=== PATIENT | female | born 1995 | race Caucasian/White ===

== ENCOUNTER 2018-03-28 13:28 | Emergency (ER) | payer OTHER ==
[2018-03-28 14:40] LABS: ABS Basophils 0 10^3/ul (0-0.2); ABS Eosinophils 0.1 10^3/ul (0-0.6); ABS Lymphocytes 1.8 10^3/ul (1.0-4.8); ABS Monocytes 0.4 10^3/ul (0-0.8); ABS Neutrophils 5.6 10^3/ul (1.5-7.7); ABS Nucleated RBC 0 10^3/ul; Eosinophil % 0.7 %; Hematocrit 40 % (35-47); Hemoglobin 13.1 g/dl (12.0-16.0); Lymphocyte % 22.6 %; Mean Corpuscular HGB Conc 33 g/dl (31-36); Mean Corpuscular Hemoglobin 30 pg (27-31); Mean Corpuscular Volume 92 fL (80-97); Mean Platelet Volume 7.4 fL (7.4-10.4); Nucleated Red Blood Cells % 0; Platelet Count 269 10^3/ul (150-450); Red Blood Count 4.32 10^6/ul (4.00-5.40); Red Cell Distribution Width 14 % (10.5-15); White Blood Count 7.8 10^3/ul (3.5-10.8)
[2018-03-28 14:56] LABS: EGFR Non-African American 94.9 (>60)
--- NOTE | 2018-03-28 16:05 | ED ---
HPI Chest Pain - HPI Summary HPI Summary: 22-year-old female presents with chest pain today. She states it started at 11. She states it was sharp in nature and lasted like an hour. She states that this pain. States it does radiate little bit to shoulder. She admits occasional shortness breath. States now she only has the pain she breath in. States it is in the same location. She has not tried anything for her symptoms. States movement makes it worse. She denies any pain or swelling in muscles. She denies any recent travel. No family history of cardiac disease or blood clots. She is not on control. No palpitations. She is on medication for ADHD but she has recently stopped. She denies any recent illness. No cough. No bowel pain. No nausea and no vomiting. - History of Current Complaint Chief Complaint: EDChestWallPain Time Seen by Provider: 03/28/18 15:41 Pain Intensity: 3 - Allergy/Home Medications Allergies/Adverse Reactions: Allergies Allergy/AdvReac Type Severity Reaction Status Date / Time No Known Allergies Allergy Verified 03/28/18 13:39 PMH/Surg Hx/FS Hx/Imm Hx Endocrine/Hematology History: Denies: Hx Anticoagulant Therapy Respiratory History: Denies: Hx Asthma Infectious Disease History: No Infectious Disease History: Denies: Traveled Outside the [place] in Last 30 Days - Family History Known Family History: Negative: Cardiac Disease, Blood Disorder - Social History Alcohol Use: Occasionally Substance Use Type: Reports: None Smoking Status (MU): Never Smoked Tobacco Review of Systems Negative: Fever Positive: Chest Pain Positive: Shortness Of Breath. Negative: Cough Negative: Abdominal Pain All Other Systems Reviewed And Are Negative: Yes Physical Exam Triage Information Reviewed: Yes Vital Signs On Initial Exam: Initial Vitals Temp Pulse Resp BP Pulse Ox 99.7 F 81 18 125/79 99 03/28/18 13:35 03/28/18 13:35 03/28/18 13:35 03/28/18 13:35 03/28/18 13:35 Vital Signs Reviewed: Yes Appearance: Positive: Well-Appearing Skin: Positive: Warm, Dry Head/Face: Positive: Normal Head/Face Inspection Eyes: Positive: Normal, EOMI, KEYONNA, Conjunctiva Clear ENT: Positive: Normal ENT inspection, Pharynx normal, TMs normal Neck: Positive: Supple, Nontender, No Lymphadenopathy Respiratory/Lung Sounds: Positive: Clear to Auscultation, Breath Sounds Present , Other - reproducible sternal chest pain Cardiovascular: Positive: Normal, RRR Abdomen Description: Positive: Nontender, Soft Bowel Sounds: Positive: Present Musculoskeletal: Positive: Normal Neurological: Positive: Normal Psychiatric: Positive: Normal Diagnostics - Vital Signs Vital Signs Temp Pulse Resp BP Pulse Ox 03/28/18 13:35 99.7 F 81 18 125/79 99 - Laboratory Lab Results: Lab Results 03/28/18 03/28/18 03/28/18 Range/Units 14:21 14:21 14:21 WBC 7.8 (3.5-10.8) 10^3/ul RBC 4.32 (4.00-5.40) 10^6/ul Hgb 13.1 (12.0-16.0) g/dl Hct 40 (35-47) % MCV 92 (80-97) fL MCH 30 (27-31) pg MCHC 33 (31-36) g/dl RDW 14 (10.5-15) % Plt Count 269 (150-450) 10^3/ul MPV 7.4 (7.4-10.4) fL Neut % (Auto) 71.5 % Lymph % (Auto) 22.6 % [place] % (Auto) 4.7 % Eos % (Auto) 0.7 % Baso % (Auto) 0.5 % Absolute Neuts (auto) 5.6 (1.5-7.7) 10^3/ul Absolute Lymphs (auto) 1.8 (1.0-4.8) 10^3/ul Absolute Monos (auto) 0.4 (0-0.8) 10^3/ul Absolute Eos (auto) 0.1 (0-0.6) 10^3/ul Absolute Basos (auto) 0 (0-0.2) 10^3/ul Absolute Nucleated RBC 0 10^3/ul Nucleated RBC % 0 D-Dimer, Quantitative < 200 (Less Than 230) ng/mL Sodium 138 (135-145) mmol/L Potassium 3.6 (3.5-5.0) mmol/L Chloride 106 (101-111) mmol/L Carbon Dioxide 27 (22-32) mmol/L Anion Gap 5 (2-11) mmol/L BUN 9 (6-24) mg/dL Creatinine 0.75 (0.51-0.95) mg/dL Est GFR ( Amer) 114.9 (>60) Est GFR (Non-Af Amer) 94.9 (>60) BUN/Creatinine Ratio 12.0 (8-20) Glucose 109 H (70-100) mg/dL Lactic Acid (0.5-2.0) mmol/L Calcium 9.8 (8.6-10.3) mg/dL Total Bilirubin 0.50 (0.2-1.0) mg/dL AST 15 (13-39) U/L ALT 22 (7-52) U/L Alkaline Phosphatase 50 (34-104) U/L Troponin I 0.00 (<0.04) ng/mL C-Reactive Protein (<8.01) mg/L Total Protein 7.2 (6.4-8.9) g/dL Albumin 4.4 (3.2-5.2) g/dL Globulin 2.8 (2-4) g/dL Albumin/Globulin Ratio 1.6 (1-3) Beta HCG, Quant 03/28/18 03/28/18 Range/Units 14:21 14:29 WBC (3.5-10.8) 10^3/ul RBC (4.00-5.40) 10^6/ul Hgb (12.0-16.0) g/dl Hct (35-47) % MCV (80-97) fL MCH (27-31) pg MCHC (31-36) g/dl RDW (10.5-15) % Plt Count (150-450) 10^3/ul MPV (7.4-10.4) fL Neut % (Auto) % Lymph % (Auto) % [place] % (Auto) % Eos % (Auto) % Baso % (Auto) % Absolute Neuts (auto) (1.5-7.7) 10^3/ul Absolute Lymphs (auto) (1.0-4.8) 10^3/ul Absolute Monos (auto) (0-0.8) 10^3/ul Absolute Eos (auto) (0-0.6) 10^3/ul Absolute Basos (auto) (0-0.2) 10^3/ul Absolute Nucleated RBC 10^3/ul Nucleated RBC % D-Dimer, Quantitative (Less Than 230) ng/mL Sodium (135-145) mmol/L Potassium (3.5-5.0) mmol/L Chloride (101-111) mmol/L Carbon Dioxide (22-32) mmol/L Anion Gap (2-11) mmol/L BUN (6-24) mg/dL Creatinine (0.51-0.95) mg/dL Est GFR ( Amer) (>60) Est GFR (Non-Af Amer) (>60) BUN/Creatinine Ratio (8-20) Glucose (70-100) mg/dL Lactic Acid 1.0 (0.5-2.0) mmol/L Calcium (8.6-10.3) mg/dL Total Bilirubin (0.2-1.0) mg/dL AST (13-39) U/L ALT (7-52) U/L Alkaline Phosphatase (34-104) U/L Troponin I (<0.04) ng/mL C-Reactive Protein 1.20 (<8.01) mg/L Total Protein (6.4-8.9) g/dL Albumin (3.2-5.2) g/dL Globulin (2-4) g/dL Albumin/Globulin Ratio (1-3) Beta HCG, Quant Pending Result Diagrams: 03/28/18 14:21 03/28/18 14:21 Lab Statement: Any lab studies that have been ordered have been reviewed, and results considered in the medical decision making process. - Radiology chest Radiology Interpretation Completed By: ED Physician Summary of Radiographic Findings: nad - EKG No standard instances Cardiac Rate: NL EKG Rhythm: Sinus Rhythm Summary of EKG Findings: sinus rhythm Chest Pain Course/Dx - Course Course Of Treatment: 22-year-old female presents with chest pain today. She states it started at 11. She states it was sharp in nature and lasted like an hour. She states that this pain. States it does radiate little bit to shoulder. She admits occasional shortness breath. States now she only has the pain she breath in. States it is in the same location. She has not tried anything for her symptoms. States movement makes it worse. She denies any pain or swelling in muscles. She denies any recent travel. No family history of cardiac disease or blood clots. She is not on control. No palpitations. She is on medication for ADHD but she has recently stopped. She denies any recent illness. No cough. No bowel pain. No nausea and no vomiting. On exam has reproducible chest pain. EKG sinus rhythm. d-dimer and troponin negative. Has no risk factors for cardiac disease. Likely costochondritis. told take ibuprofen. told to follow up with primary. Patient understands agrees plan. - Chest Pain Differential Diagnosis/HQI/PQRI: Angina, Chest Wall, Lower Respiratory Infection - Diagnoses Provider Diagnoses: Chest pain Discharge - Sign-Out/Discharge Documenting (check all that apply): Patient Departure - Discharge Plan Condition: Good Disposition: HOME Patient Education Materials: Noncardiac Chest Pain (ED) Referrals: No Primary Care Phys,NOPCP [Primary Care Provider] - Additional Instructions: take ibuprofen every 6 hours for pain Follow up with primary within 5 days Return to ED if develop any new or worsening symptoms - Billing Disposition and Condition Condition: GOOD Disposition: Home
[2018-03-28 16:36] VITALS: BP 119/77
== END 2018-03-28 16:35 | disposition home or self-care (01) ==
LOC: ED 13:28
DX: R07.9 Chest pain, unspecified (principal); F90.9 Attention-deficit hyperactivity disorder, unspecified type
CPT/HCPCS: 36415; 71046; 80053; 83605; 84484; 84702; 85025; 85379; 86140; 93005; 99282

== ENCOUNTER 2018-08-02 14:51 | Emergency (ER) | payer OTHER ==
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
[2018-08-02] MEDS ORDERED: Ketorolac INJ* 30 MG/ML 1 ML VIAL IM ONE (18:12)
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
[2018-08-02 18:31] VITALS: BP 114/69
== END 2018-08-02 18:30 | disposition home or self-care (01) ==
LOC: ED 14:51
DX: M54.2 Cervicalgia (principal); M54.9 Dorsalgia, unspecified; M25.562 Pain in left knee; V43.52XA Car driver injured in collision with other type car in traffic accident, initial encounter; Y92.410 Unspecified street and highway as the place of occurrence of the external cause
CPT/HCPCS: 72020; 72040; 72110; 96374; 99282; J1885

== ENCOUNTER 2019-07-17 01:07 | Emergency (ER) | payer OTHER ==
--- NOTE | 2019-07-17 01:51 | ED ---
Shortness of Breath - HPI Summary HPI Summary: Patient is a 24 year-old female presenting to [facility] with a chief complaint of shortness of breath worsening over the last week. She reports that she had began feeling unwell three weeks ago with mild and intermittent symptoms for the first two weeks. At the beginning of the third week, her symptoms worsened as she developed more shortness of breath. She went to [facility] where she was diagnosed with asthma and prescribed prescribed an Albuterol Sulfate HFA inhaler, although she has never had asthma before. She was also tested for COVID -19 at this time but is still awaiting results. She has been using the inhaler without any relief of her symptoms. She endorses chest wall pain secondary to cough. She denies any fevers, which she has been checking everyday since being placed in quarantine a week ago. She is concerned for possible allergic reaction to the inhaler. Symptoms rated 7/10 in severity now. No recent travel. Past medical history includes schizo-affective disorder. Nonsmoker, occasional EtOH, no substance use. Medications reviewed. Allergies noted. - History of Current Complaint Chief Complaint: EDShortnessOfBreath Time Seen by Provider: 07/17/19 01:16 Hx Obtained From: Patient Onset/Duration: Gradual Onset, Lasting Days, Still Present Current Severity: Moderate Dyspnea At: Rest Aggravating Factors: Nothing Alleviating Factors: Nothing Associated Signs & Symptoms: Chest Pain w/Cough - Allergy/Home Medications Allergies/Adverse Reactions: Allergies Allergy/AdvReac Type Severity Reaction Status Date / Time No Known Allergies Allergy Verified 07/17/19 01:13 Home Medications: Home Medications [place] Carbonate ER TAB* 1 tab PO BID 08/02/18 [History Confirmed 07/17/19] Albuterol Sulfate Hfa 2 puff INH DAILY 07/17/19 [History Confirmed 07/17/19] PMH/Surg Hx/FS Hx/Imm Hx Endocrine/Hematology History: Denies: Hx Anticoagulant Therapy Cardiovascular History: Denies: Hx Hypercholesterolemia, Hx Hypertension Respiratory History: Reports: Hx Asthma Psychiatric History: Reports: Hx Schizophrenia - Surgical History Surgical History: None Surgery Procedure, Year, and Place: none Infectious Disease History: No Infectious Disease History: Denies: Traveled Outside the [place] in Last 30 Days - Family History Known Family History: Negative: Cardiac Disease, Blood Disorder - Social History Alcohol Use: Occasionally Alcohol Amount: 4-5 drinks Hx Substance Use: No Substance Use Type: Reports: None Hx Tobacco Use: No Smoking Status (MU): Never Smoked Tobacco - Additional Comments History Additional Comments: recently diagnosed asthma, schizo-affective disorder Review of Systems - ROS Summary Review of Systems Summary: Home Medications Medication Instructions Recorded Confirmed Type [place] Carbonate ER TAB* 1 tab PO BID 08/02/18 07/17/19 History Albuterol Sulfate Hfa 2 puff INH DAILY 07/17/19 07/17/19 History Negative: Fever Positive: Chest Pain Positive: Shortness Of Breath, Cough All Other Systems Reviewed And Are Negative: Yes Physical Exam - Summary Physical Exam Summary: General: Well-developed, Well-nourished female. Moderately anxious-appearing. No acute distress. HEENT: Normocephalic, Atraumatic. Eyes: Conjuctiva normal, PERRL. Oropharynx: Clear, mucous membranes moist, (-) exudates. Neck: Soft, FROM, (-) lymphadenopathy, (-) thyromegaly, (-) JVD. Cardiovascular: Normal sinus rhythm, (-) murmur. Lungs: Clear to auscultation bilaterally (-) wheezes, (-) rales, (-) rhonchi. Abdomen: Soft, non-tender, non-distended, (-) organomegaly, normal bowel sounds. Back: (-) CVA tenderness Extremities: No edema. Skin: Warm, dry, (-) rash. Neuro: Alert and oriented x3, moves all extremities equally. No ataxia. No gait disturbance. No sensory deficit. Normal strength, normal sensation. Psychiatric: Mood normal, affect normal. Triage Information Reviewed: Yes Vital Signs On Initial Exam: Initial Vitals Temp Pulse Resp BP Pulse Ox 99.7 F 89 21 129/91 100 07/17/19 01:11 07/17/19 01:11 07/17/19 01:11 07/17/19 01:11 07/17/19 01:11 Vital Signs Reviewed: Yes Procedures - Sedation Patient Received Moderate/Deep Sedation with Procedure: No Diagnostics - Vital Signs Vital Signs Temp Pulse Resp BP Pulse Ox 07/17/19 01:36 98.0 F 20 07/17/19 01:11 99.7 F 89 21 129/91 100 - Laboratory Result Diagrams: 07/17/19 02:20 03/26/20 02:20 Lab Statement: Any lab studies that have been ordered have been reviewed, and results considered in the medical decision making process. - Radiology CXR Radiology Interpretation Completed By: ED Physician Summary of Radiographic Findings: No pleural effusion. No infiltrate. This imaging scan was reviewed and interpreted by Dr. Escobar. - EKG 0420 Cardiac Rate: NL - 84 BPM EKG Rhythm: Sinus Rhythm Summary of EKG Findings: EKG at 0420 reveals normal sinus rhythm with rate of 84 BPM, no acute changes, no ischemic changes. This EKG was reviewed and interpreted by Dr. Escobar. Re-Evaluation - Re-Evaluation First Eval Re-Evaluation Time: 03:40 Comment: I discussed all results. Discussed all symptoms that warrant return to the ED. Course/Dx - Course Course Of Treatment: 24-year-old female presents with shortness of breath. Patient initially seen at [facility]. She has been tested for covid-19 and placed in quarantine. Results not available yet one week later. Patient states they started her on albuterol inhaler for asthma although she's never had asthma previously. She denies any fevers. No cough. On physical exam she is afebrile. Lungs are clear. Not ill-appearing. Laboratories show no significant abnormality. Chest x-ray within normal limits. Patient discharged home. Follow up with PCP. Follow-up sooner for any worsening symptoms. - Diagnoses Provider Diagnoses: Bronchitis Discharge ED - Sign-Out/Discharge Documenting (check all that apply): Patient Departure - Patient will be discharged home. - Discharge Plan Condition: Stable Disposition: HOME Patient Education Materials: Acute Bronchitis (ED) Referrals: [facility] [Provider Group] - 3 Days Additional Instructions: Please continue to quarantine until you are instructed otherwise by the Health Department concerning your COVID-19 test. Follow up with your primary care provider in 2-3 days. Return to the emergency department for any new or worsening symptoms. - Billing Disposition and Condition Condition: STABLE Disposition: Home - Attestation Statements Document Initiated by Scribe: Yes Documenting Scribe: Lexy Kebede Provider For Whom Scribe is Documenting (Include Credential): Daria Escobar MD Scribe Attestation: Lxey Cabrera, scribed for Daria Escobar MD on 07/18/19 at 2004. Scribe Documentation Reviewed: Yes Provider Attestation: The documentation as recorded by the mishelibLexy joaquin accurately reflects the service I personally performed and the decisions made by me, Daria Escobar MD Status of Conor Document: Viewed
[2019-07-17 02:29] LABS: ABS Eosinophils 0.1 10^3/ul (0-0.6); ABS Lymphocytes 2.6 10^3/ul (1.0-4.8); ABS Monocytes 0.4 10^3/ul (0-0.8); ABS Neutrophils 3.5 10^3/ul (1.5-7.7); Hematocrit 38 % (35-47); Hemoglobin 13.1 g/dL (12.0-16.0); Lymphocyte % 38.5 %; Mean Corpuscular HGB Conc 34 g/dL (31-36); Mean Corpuscular Hemoglobin 30 pg (27-31); Mean Corpuscular Volume 88 fL (80-97); Mean Platelet Volume 7.5 fL (7.4-10.4); Platelet Count 251 10^3/uL (150-450); Red Blood Count 4.34 10^6 /uL (3.70-4.87); Red Cell Distribution Width 14 % (10-15); White Blood Count 6.8 10^3/uL (3.5-10.8)
[2019-07-17 02:36] LABS: INR 0.96 (0.82-1.09)
[2019-07-17 02:49] LABS: ALT 63 U/L (7-52); AST 27 U/L (13-39); Albumin 4.1 g/dL (3.2-5.2); Albumin/Globulin Ratio 1.3 (1-3); Alkaline Phosphatase 63 U/L (34-104); Anion Gap 7 mmol/L (2-11); BUN/Creatinine Ratio 21.7 (8-20); Blood Urea Nitrogen 15 mg/dL (6-24); CO2 Carbon Dioxide 22 mmol/L (22-32); Calcium 9.5 mg/dL (8.6-10.3); Chloride 107 mmol/L (101-111); EGFR African American 124.4 (>60); EGFR Non-African American 102.8 (>60); Globulin 3.1 g/dL (2-4); Glucose 88 mg/dL (70-100); Potassium 3.5 mmol/L (3.5-5.0); Sodium 136 mmol/L (135-145); Total Protein 7.2 g/dL (6.4-8.9)
[2019-07-17 02:56] LABS: HCG Pregnancy < 0.60 mIU/mL
[2019-07-17 04:09] VITALS: BP 109/64
--- NOTE | 2019-07-19 09:03 | ED ---
Imaging and Labs Follow Up Follow Up Type: Labs/Cultures Labs/Culture Result: 1 aerobic culture growing staph epidermidis. Patient Communication/Plan: Pt. seen for increased SOB with hx of asthma per ED note. Suspect culture is contaminant. Normal WBC, negative fever. No change in treatment needed at this time. Provider Diagnoses: Bronchitis
== END 2019-07-17 04:25 | disposition home or self-care (01) ==
LOC: ED 01:07
DX: J40 Bronchitis, not specified as acute or chronic (principal); R07.9 Chest pain, unspecified; J45.909 Unspecified asthma, uncomplicated; R05 Cough; Z20.828 Contact with and (suspected) exposure to other viral communicable diseases; Z79.899 Other long term (current) drug therapy
CPT/HCPCS: 36415; 71045; 80053; 83605; 83880; 84484; 84702; 85025; 85379; 85610; 86140; 87040; 87077; 87150; 87186; 87205; 93005; 99283

== ENCOUNTER 2021-05-08 09:45 | Inpatient (IN) ==
[2021-05-08 11:22] LABS: Urine Bacteria Absent (Absent); Urine Red Blood Cell 3+(>10/hpf) (Absent); Urine Squamous Epithelial Cell Present (Absent); Urine White Blood Cell Trace(0-5/hpf) (Absent)
[2021-05-08 11:23] LABS: Urine Appearance Clear; Urine Color Yellow
[2021-05-08 11:24] LABS: Urine Blood 3+ (Negative); Urine Ketones Negative (Negative); Urine Protein Negative (Negative); Urine Specific Gravity 1.005 (1.002-1.030); Urine Urobilinogen Positive (Negative); Urine pH 7 (5-9)
[2021-05-08 11:25] LABS: Urine Bilirubin Negative (Negative); Urine Glucose Negative (Negative); Urine Nitrite Negative (Negative)
[2021-05-08 11:26] LABS: Albumin 4.5 g/dL (3.2-5.2); CO2 Carbon Dioxide 20 mmol/L (22-32); Chloride 109 mmol/L (101-111); Sodium 138 mmol/L (135-145)
[2021-05-08 11:27] LABS: Lithium 0.64 mmol/L (0.6-1.2)
[2021-05-08 11:30] LABS: Urine Benzodiazepine Screen None Detected (None Detect); Urine Cannabinoids Screen None Detected (None Detect); Urine Opiates Screen None Detected (None Detect)
[2021-05-08 11:32] LABS: ALT 22 U/L (7-52); Albumin/Globulin Ratio 1.3 (1-3); Alkaline Phosphatase 66 U/L (35-149); Blood Urea Nitrogen 9 mg/dL (6-24); Globulin 3.5 g/dL (2-4); Glucose 102 mg/dL (70-100)
[2021-05-08 11:33] LABS: Acetaminophen < 15 mcg/mL; Alcohol, S < 13 mg/dL (<13); Salicylate < 2.50 mg/dL (<30)
[2021-05-08 11:37] LABS: Anion Gap 9 mmol/L (2-11)
[2021-05-08 12:02] LABS: TSH Ultra Thyroid Stim Horm 3.06 mcIU/mL (0.34-5.60)
[2021-05-08 12:47] LABS: Potassium Redraw 3.7 mmol/L (3.5-5.0)
[2021-05-08] MEDS ORDERED: Al Hydrox/Mg Hydrox/Simet LIQ 30 ML UDC PO PRN (16:28)
[2021-05-09 07:50] LABS: HDL Cholesterol 48.8 mg/dL
[2021-05-09] MEDS: Vitamin THERAPEUTIC TAB PO SCH (08:45)
[2021-05-10] MEDS: Vitamin THERAPEUTIC TAB PO SCH (08:35)
[2021-05-11] MEDS: Vitamin THERAPEUTIC TAB PO SCH (07:45)
[2021-05-12] MEDS: Vitamin THERAPEUTIC TAB PO SCH (08:28)
[2021-05-12] MEDS: Lurasidone 120 mg TAB PO SCH (17:36)
[2021-05-13] MEDS: Vitamin THERAPEUTIC TAB PO SCH (09:11)
[2021-05-13] MEDS ORDERED: OLANzapine 5 mg TAB*ODT PO PRN (12:44)
[2021-05-13] MEDS: Lurasidone 120 mg TAB PO SCH (18:13)
[2021-05-13] MEDS: Benzocaine/Menthol LOZ PO PRN (23:23)
[2021-05-14] MEDS: Vitamin THERAPEUTIC TAB PO SCH (07:39)
[2021-05-14] MEDS: Lurasidone 120 mg TAB PO SCH (17:47)
[2021-05-14] MEDS: Benzocaine/Menthol LOZ PO PRN (17:48)
[2021-05-15] MEDS: Saline NASAL SPRAY 0.65% BTL BOTH NARES PRN (02:38)
[2021-05-15] MEDS: Vitamin THERAPEUTIC TAB PO SCH (08:36)
[2021-05-15] MEDS: Lurasidone 120 mg TAB PO SCH (17:13)
[2021-05-16] MEDS: Saline NASAL SPRAY 0.65% BTL BOTH NARES PRN (02:42)
[2021-05-16] MEDS: Vitamin THERAPEUTIC TAB PO SCH (08:31)
[2021-05-16] MEDS: Lurasidone 120 mg TAB PO SCH (22:02)
[2021-05-17] MEDS: Vitamin THERAPEUTIC TAB PO SCH (08:01)
[2021-05-17] MEDS: Lurasidone 120 mg TAB PO SCH (21:57)
[2021-05-18] MEDS: Vitamin THERAPEUTIC TAB PO SCH (08:54)
[2021-05-18 09:22] VITALS: BP 124/80
== END 2021-05-18 13:14 | disposition home or self-care (01) | DRG 885 ==
LOC: ED 09:45 → EDHOLD 13:40 → BSU 15:46
PROVIDERS: ADMIT Psychiatry & Neurology Addiction Psychiatry; ATTEND Psychiatry & Neurology Addiction Psychiatry

== ENCOUNTER 2022-10-08 22:16 | Inpatient (IN) ==
[2022-10-08] MEDS ORDERED: Midazolam 2 mg/2 ml VIAL 1 mg/ml 2 ml VIAL (2 mg) IV SLOW PU ONE (22:45)
[2022-10-08] MEDS ORDERED: Lactated Ringers 1000 ml BAG 1,000 ML IV ONE (22:47)
[2022-10-08 23:05] LABS: ABS Basophils 0.1 10^3/uL (0.0-0.1); ABS Lymphocytes 2.3 10^3/uL (1.0-4.8); ABS Monocytes 0.8 10^3/uL (0.0-0.9); ABS Neutrophils 6.3 10^3/uL (1.5-7.6); ABS Nucleated RBC 0.01 10^3/ul; Eosinophil % 0.4 %; Hematocrit 40.9 % (35-45); Hemoglobin 13.8 g/dL (11.5-14.3); Lymphocyte % 24.4 %; Mean Corpuscular Hemoglobin 30.6 pg (27-33); Mean Corpuscular Hgb Conc 33.9 g/dL (31-36); Mean Corpuscular Volume 90.5 fL (80-97); Mean Platelet Volume 7.8 fL (7.5-11.2); Nucleated Red Blood Cells % 0.1 /100 WBC (0.0-0.4); Platelet Count 319 10^3/uL (150-450); Red Blood Count 4.52 10^6/uL (3.63-4.92); Red Cell Distribution Width 13.8 % (12-17); White Blood Count 9.5 10^3/uL (3.8-11.8)
[2022-10-08] MEDS ORDERED: Lorazepam PYXIS KEY PRN (23:05)
[2022-10-08] MEDS ORDERED: LORazepam 2 mg VIAL 1 ml IV PUSH ONE (23:05)
[2022-10-08 23:20] LABS: ALT 20 U/L (7-52); AST 17 U/L (13-39); Acetaminophen < 15 mcg/mL; Albumin 4.4 g/dL (3.2-5.2); Albumin/Globulin Ratio 1.3 (1-3); Alcohol, S < 13 mg/dL (<13); Alkaline Phosphatase 59 U/L (35-149); Anion Gap 12 mmol/L (2-16); Blood Urea Nitrogen 7 mg/dL (6-24); CO2 Carbon Dioxide 19 mmol/L (22-32); Calcium 9.7 mg/dL (8.6-10.3); Chloride 108 mmol/L (101-111); Creatinine, Serum 0.81 mg/dL (0.51-0.95); Globulin 3.4 g/dL (2-4); Glucose 99 mg/dL (70-100); Lithium 0.62 mmol/L (0.6-1.2); Potassium 3.7 mmol/L (3.5-5.0); Salicylate < 2.50 mg/dL (<30); Sodium 139 mmol/L (135-145); Total Protein 7.8 g/dL (6.4-8.9); eGFR CKD-EPI 100.7 (>60)
[2022-10-08 23:27] LABS: HCG Pregnancy < 0.60 mIU/mL
[2022-10-08 23:36] LABS: TSH Ultra Thyroid Stim Horm 3.85 mcIU/mL (0.34-5.60)
[2022-10-08] MEDS ORDERED: OLANZapine 10 mg TAB*ODT PO ONE (23:37)
[2022-10-09 00:20] LABS: Urine Benzodiazepine Screen None Detected (None Detect); Urine Cannabinoids Screen Presumptive Positive (None Detect); Urine Opiates Screen None Detected (None Detect)
[2022-10-09 00:28] LABS: Urine Appearance Cloudy; Urine Bilirubin Negative (Negative); Urine Blood 2+ (Negative); Urine Color Amber; Urine Glucose Negative (Negative); Urine Ketones 1+ (Negative); Urine Nitrite Negative (Negative); Urine Protein 2+(100 mg/dL) (Negative); Urine Specific Gravity 1.024 (1.002-1.030); Urine Urobilinogen Positive (Negative)
[2022-10-09 00:32] LABS: Urine Bacteria 1+ (Absent); Urine Red Blood Cell 2+(6-10/hpf) (Absent); Urine Squamous Epithelial Cell Present (Absent); Urine White Blood Cell Trace(0-5/hpf) (Absent)
[2022-10-09] MEDS ORDERED: Al Hydrox/Mg Hydrox/Simet LIQ 30 ML UDC PO PRN (01:26)
[2022-10-09] MEDS ORDERED: OLANZapine IM (NF) 10 MG VIAL IM PRN (07:55)
[2022-10-09] MEDS: Vitamin THERAPEUTIC TAB PO SCH (08:15)
[2022-10-10] MEDS ORDERED: Lorazepam PYXIS KEY PRN (00:10)
[2022-10-10] MEDS ORDERED: Haloperidol 5 mg/ml SDV IV/IM 5 MG/ML AMP IM ONE (01:00)
[2022-10-10] MEDS ORDERED: LORazepam 2 mg VIAL 1 ml IM ONE (01:00)
[2022-10-10] MEDS: Vitamin THERAPEUTIC TAB PO SCH (10:27)
[2022-10-11] MEDS: Vitamin THERAPEUTIC TAB PO SCH (10:11)
[2022-10-12] MEDS ORDERED: Haloperidol 5 mg/ml SDV IV/IM 5 MG/ML AMP ONE (02:27)
[2022-10-12] MEDS ORDERED: LORazepam 2 mg VIAL 1 ml ONE (02:27)
[2022-10-12] MEDS ORDERED: LORazepam 2 mg VIAL 1 ml IM ONE (03:00)
[2022-10-12] MEDS ORDERED: Haloperidol 5 mg/ml SDV IV/IM 5 MG/ML AMP IM ONE (03:00)
[2022-10-12] MEDS: Vitamin THERAPEUTIC TAB PO SCH (11:42)
[2022-10-13] MEDS: Vitamin THERAPEUTIC TAB PO SCH (07:22)
[2022-10-14] MEDS: Vitamin THERAPEUTIC TAB PO SCH (10:33)
[2022-10-14] MEDS: Saline NASAL SPRAY 0.65% BTL BOTH NARES PRN (19:36)
[2022-10-15] MEDS: Vitamin THERAPEUTIC TAB PO SCH (10:18)
[2022-10-16] MEDS: Vitamin THERAPEUTIC TAB PO SCH (08:24)
[2022-10-16] MEDS ORDERED: Paliperidone SUSTENNA 234 MG/1.5 ML IM ONE (12:00)
[2022-10-16] MEDS: Saline NASAL SPRAY 0.65% BTL BOTH NARES PRN (13:32)
[2022-10-17] MEDS: Vitamin THERAPEUTIC TAB PO SCH (09:44)
[2022-10-18] MEDS: Vitamin THERAPEUTIC TAB PO SCH (08:34)
[2022-10-19] MEDS: Vitamin THERAPEUTIC TAB PO SCH (09:21)
[2022-10-19] MEDS ORDERED: Paliperidone SUSTENNA 156 MG/1 ML IM ONE (10:48)
[2022-10-20 08:51] VITALS: BP 126/75
[2022-10-20] MEDS: Vitamin THERAPEUTIC TAB PO SCH (09:11)
== END 2022-10-20 12:05 | disposition home or self-care (01) | DRG 885 ==
LOC: ED 22:16 → BSU 10-09 02:32 → ED 10-09 02:32 → BSU 10-09 03:37
PROVIDERS: ADMIT Psychiatry & Neurology Psychiatry; ATTEND Psychiatry & Neurology Psychiatry